=== PATIENT | female | born 1960 ===

== ENCOUNTER 2021-12-19 00:49 | Emergency (ER) | payer OTHER ==
[2021-12-19 01:20] LABS: Bilirubin,Urine NEG (Negative); Blood,Urine SM (Negative); Color,Urine Yellow (Yellow); Mucus,Urine FEW /HPF; Protein,Urine <15 mg/dL mg/dL (Negative); Urobilinogen,Urine < 2.0 mg/dL (<2.0)
[2021-12-19 01:54] LABS: Basophils % (Auto) 0.4 % (0.0-1.8); Eosinophils # (Auto) 0.1 K/mm3 (0.0-0.4); Eosinophils % (Auto) 1.4 % (0.0-4.3); Hematocrit 37.6 % (30.3-42.9); Hemoglobin 12.6 gm/dl (10.1-14.3); Lymphocytes # (Auto) 2.1 K/mm3 (1.2-5.4); Lymphocytes % (Auto) 23.3 % (13.4-35.0); Mean Corpuscular HGB Conc 34 % (30-34); Mean Corpuscular Volume 94 fl (79-97); Monocytes # (Auto) 0.5 K/mm3 (0.0-0.8); Monocytes % (Auto) 5.3 % (0.0-7.3); Platelet Count 313 K/mm3 (140-440); Red Blood Count 4.01 M/mm3 (3.65-5.03); Red Cell Distribution Width 13.1 % (13.2-15.2)
[2021-12-19 02:08] LABS: Alanine Aminotransferase 21 units/L (7-56); Blood Urea Nitrogen 12 mg/dL (7-17); Calcium 8.9 mg/dL (8.4-10.2); Hemolysis Index 4
[2021-12-19 02:25] LABS: BUN/Creatinine Ratio 17
[2021-12-19] MEDS ORDERED: DICYCLOMINE 10 MG/5 ML ORAL LIQD PO ONE (10:17)
[2021-12-19] MEDS ORDERED: ALUM-MAG HYDROXIDE-SIMETHICONE 200-200-20MG/5ML ORAL LIQD 30 ML PO ONE (10:17)
[2021-12-19] MEDS ORDERED: LIDOCAINE VISCOUS 2% 15 ML ORAL LIQD PO ONE (10:17)
[2021-12-19] MEDS ORDERED: cephALEXin 500 MG CAP PO ONE (10:18)
[2021-12-19] MEDS ORDERED: POTASSIUM CHLORIDE ER 20 MEQ TAB PO ONE (10:30)
--- NOTE | 2021-12-19 10:56 | Emergency Department Report ---
ED Abdominal Pain HPI - General Chief Complaint: Abdominal Pain Stated Complaint: ABD PAIN/ VOMITING Time Seen by Provider: 12/19/21 10:00 Source: patient Mode of arrival: Ambulatory Limitations: No Limitations - History of Present Illness Initial Comments: 61-year-old female with a past medical history of hernia presents to the emergency department for evaluation of epigastric pain that started about 2 hours prior to arrival. She states that she vomited several times also. She states that she had the same type pain 3 weeks ago that resolved on its own. She denies fever, diarrhea, vaginal discharge. She states that pain is worse is 7-8 on a 10 point scale. MD Complaint: abdominal pain -: Gradual, hour(s) Location: epigastric Radiation: none Migration to: no migration Severity: moderate Severity scale (0 -10): 8 Quality: burning Consistency: constant Associated Symptoms: nausea, vomiting. denies: diarrhea, fever, chills, dysuria, hematemesis, hematochezia, melena, hematuria, anorexia, syncope - Related Data Previous Rx's Medication Instructions Recorded Last Taken Type Famotidine [Pepcid] 40 mg PO QHS #30 tab 12/19/21 Unknown Rx cephALEXin [Keflex] 500 mg PO Q12HR 7 Days #14 cap 12/19/21 Unknown Rx Allergies Allergy/AdvReac Type Severity Reaction Status Date / Time acetaminophen Allergy Unknown Verified 12/19/21 01:04 ED Review of Systems ROS: Stated complaint: ABD PAIN/ VOMITING Other details as noted in HPI Comment: All other systems reviewed and negative Constitutional: denies: chills, fever Eyes: denies: vision change ENT: denies: congestion Respiratory: denies: cough, orthopnea, shortness of breath, SOB with exertion, SOB at rest, stridor, wheezing Cardiovascular: denies: chest pain, palpitations, dyspnea on exertion, orthopnea, edema, syncope, paroxysmal nocturnal dyspnea Gastrointestinal: abdominal pain, nausea, vomiting. denies: diarrhea, hematem esis, melena, hematochezia Genitourinary: denies: urgency, dysuria, frequency, hematuria, discharge Musculoskeletal: denies: back pain Skin: denies: rash, lesions Neurological: denies: headache, weakness, numbness, paresthesias, confusion, abnormal gait, vertigo Psychiatric: denies: anxiety Hematological/Lymphatic: denies: easy bleeding, easy bruising ED Past Medical Hx - Medications Home Medications: Home Medications Medication Instructions Recorded Confirmed Last Taken Type Famotidine [Pepcid] 40 mg PO QHS #30 tab 12/19/21 Unknown Rx cephALEXin [Keflex] 500 mg PO Q12HR 7 Days #14 cap 12/19/21 Unknown Rx ED Physical Exam - General Limitations: No Limitations General appearance: alert, in no apparent distress - Head Head exam: Present: atraumatic, normocephalic - Eye Eye exam: Present: normal appearance. Absent: conjunctival injection, periorbital swelling, periorbital tenderness - Neck Neck exam: Present: normal inspection, tenderness, full ROM. Absent: meningismus, lymphadenopathy - Respiratory Respiratory exam: Present: normal lung sounds bilaterally. Absent: respiratory distress, wheezes, rales, rhonchi, stridor, chest wall tenderness - Cardiovascular Cardiovascular Exam: Present: regular rate, normal heart sounds - GI/Abdominal GI/Abdominal exam: Present: soft, normal bowel sounds. Absent: distended, tenderness, guarding, rebound, rigid - Extremities Exam Extremities exam: Present: normal inspection, normal capillary refill. Absent: tenderness, pedal edema, joint swelling, calf tenderness - Back Exam Back exam: Present: normal inspection. Absent: CVA tenderness (R), CVA tenderness (L), vertebral tenderness - Neurological Exam Neurological exam: Present: alert, oriented X3, normal gait - Psychiatric Psychiatric exam: Present: normal affect, normal mood - Skin Skin exam: Present: warm, dry, intact, normal color ED Course Vital Signs 12/19/21 12/19/21 01:00 11:30 Temperature 99.0 F 98.7 F Pulse Rate 71 77 Respiratory 18 18 Rate Blood Pressure 128/88 Blood Pressure 124/79 [Right] O2 Sat by Pulse 98 99 Oximetry - Reevaluation(s) Reevaluation #1: 12/19/21 11:30 Pain resolved after medication. ED Medical Decision Making - Lab Data Result diagrams: 12/19/21 01:19 12/19/21 01:19 - Medical Decision Making 61-year-old female with a past medical history of hernia presents to the emergency department for evaluation of epigastric pain that started about 2 hours prior to arrival. She states that she vomited several times also. She states that she had the same type pain 3 weeks ago that resolved on its own. She denies fever, diarrhea, vaginal discharge. She states that pain is worse is 7-8 on a 10 point scale. No gross abnormalities noted on exam or labs, and symptoms suggestive of GERD. Urine positive for urinary tract infection. Patient will be treated with 7-day course of Keflex along with prescription for Pepcid to take nightly. She is advised to take medications as prescribed and follow-up with her primary care provider for further evaluation and management. She is advised to return to the emergency department as needed. Critical care attestation.: If time is entered above; I have spent that time in minutes in the direct care of this critically ill patient, excluding procedure time. ED Disposition Clinical Impression: Epigastric pain, Hypokalemia UTI (urinary tract infection) Qualifiers: Urinary tract infection type: acute cystitis Hematuria presence: with hematuria Qualified Code(s): N30.01 - Acute cystitis with hematuria Disposition: HOME / SELF CARE / HOMELESS Is pt being admited?: No Does the pt Need Aspirin: No Condition: Stable Instructions: Antibiotic Medicine, Adult, [id number], Hypokalemia, Urinary Tract Infection, Adult, [id number], Abdominal Pain, Adult, [id number], Potassium Content of Foods, Gastroesophageal Reflux Disease, Adult, [id number], Abdominal Pain (ED) Additional Instructions: Take medications as prescribed. Follow-up with primary care provider for further evaluation and management. Return to the emergency department as needed. Prescriptions: Famotidine [Pepcid] 40 mg PO QHS #30 tab cephALEXin [Keflex] 500 mg PO Q12HR 7 Days #14 cap Referrals: LINDSEY BHANDARI MD [Staff Physician] - 3-5 Days Time of Disposition: 10:56 Print Language: FAROESE
[2021-12-19 11:31] VITALS: BP 124/79
== END 2021-12-19 11:32 | disposition home or self-care (01) ==
LOC: ED 00:49
DX: N39.0 Urinary tract infection, site not specified (principal); R10.13 Epigastric pain; E87.6 Hypokalemia; Z88.8 Allergy status to other drugs, medicaments and biological substances
CPT/HCPCS: 36415; 80053; 81001; 82150; 83690; 84703; 85025; 99283